=== PATIENT | male | born 1930 | race American Indian/Alaskan Native ===

== ENCOUNTER 2017-05-29 03:04 | Emergency (ER) | payer MEDICARE ==
--- NOTE | 2017-05-29 03:15 | Emergency Department Report ---
ED General Adult HPI - General Chief complaint: Dyspnea/Respdistress Stated complaint: DIFFICULTY IN BREATHING Time Seen by Provider: 05/29/17 03:13 Source: EMS (verbal report received from EMS.ems notes not available at time of chart dictation), RN notes reviewed, old records reviewed Limitations: Altered Mental Status, Physical Limitation, Other (patient is a poor historian) - History of Present Illness Initial comments: Primary care Dr.: Dr. Chadwick Past medical history: Hemorrhagic stroke, Anoxic encephalopathy, seizure, tracheostomy, G-tube This is an 87-year-old male who was previously unknown to this provider. He is sent to the ER from his local detention for evaluation of respiratory distress. As per detention documentation, patient saturating at 70-78% on vent at 4 L/ m. EMS verbally reported that upon arrival they aggressively suctioned the patient , and aggressively provided [id number] ventilation. All these interventions improve the patient's saturation. Upon arrival to the ER, the patient was aggressively suctioned by respiratory therapy, and placed on a ventilator at appropriate settings. 2. A postprocedure arterial blood gas demonstrated a PO2 of over 300, and the patient is currently saturating at 97% on room air in no distress. He is nonverbal, and can therefore not describe exacerbating or relieving factors, or radiation. -: Sudden Improves with: other Worsens with: other Associated Symptoms: other (per hpi) - Related Data Home Medications Medication Instructions Recorded Confirmed Last Taken Famotidine [Pepcid] 40 mg PO DAILY 03/23/17 03/23/17 Unknown Phenytoin (25 mg/ml) [Dilantin] 200 mg FEEDTUBE BID 03/23/17 03/23/17 Unknown Scopolamine [Transderm-Scop] 1 1000units TRANSDERMA Q72HR 03/23/17 03/23/17 Unknown levETIRAcetam [Keppra ORAL LIQ] 1,000 mg FEEDTUBE BID 03/23/17 03/23/17 Unknown Previous Rx's Medication Instructions Recorded Last Taken Type ALBUTEROL NEB's [Proventil 0.083% 2.5 mg IH Q4HRT PRN nebu 03/26/17 Unknown Rx NEBS] Clindamycin [Clindamycin CAP] 300 mg PO Q8H #6 cap 03/26/17 Unknown Rx Famotidine [Pepcid] 20 mg FEEDTUBE BID tablet 03/26/17 Unknown Rx Ferrous Sulfate [Iron] 325 mg PO BID #60 tablet 03/26/17 Unknown Rx Levofloxacin [Levaquin] 750 mg PO QDAY #2 tablet 03/26/17 Unknown Rx Metoprolol [Lopressor TAB] 50 mg FEEDTUBE BID #60 tablet 03/26/17 Unknown Rx QUEtiapine [SEROquel] 50 mg FEEDTUBE TID tablet 03/26/17 Unknown Rx amLODIPine [Norvasc] 10 mg PO QDAY tablet 03/26/17 Unknown Rx Allergies Allergy/AdvReac Type Severity Reaction Status Date / Time No Known Allergies Allergy Unverified 03/22/17 14:09 ED Review of Systems ROS: Stated complaint: DIFFICULTY IN BREATHING Other details as noted in HPI Comment: Unobtainable due to pts medical conditions ED Past Medical Hx - Past Medical History Hx Hypertension: Yes 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 Respiratory failure - Surgical History Hx Pacemaker: No Hx Internal Defibrillator: No Additional Surgical History: Tracheostomy - Social History Smoking Status: Never Smoker - Medications Home Medications: Home Medications Medication Instructions Recorded Confirmed Last Taken Type Famotidine [Pepcid] 40 mg PO DAILY 03/23/17 03/23/17 Unknown History Phenytoin (25 mg/ml) [Dilantin] 200 mg FEEDTUBE BID 03/23/17 03/23/17 Unknown History Scopolamine [Transderm-Scop] 1 1000units TRANSDERMA Q72HR 03/23/17 03/23/17 Unknown History levETIRAcetam [Keppra ORAL LIQ] 1,000 mg FEEDTUBE BID 03/23/17 03/23/17 Unknown History ALBUTEROL NEB's [Proventil 0.083% 2.5 mg IH Q4HRT PRN nebu 03/26/17 Unknown Rx NEBS] Clindamycin [Clindamycin CAP] 300 mg PO Q8H #6 cap 03/26/17 Unknown Rx Famotidine [Pepcid] 20 mg FEEDTUBE BID tablet 03/26/17 Unknown Rx Ferrous Sulfate [Iron] 325 mg PO BID #60 tablet 03/26/17 Unknown Rx Levofloxacin [Levaquin] 750 mg PO QDAY #2 tablet 03/26/17 Unknown Rx Metoprolol [Lopressor TAB] 50 mg FEEDTUBE BID #60 tablet 03/26/17 Unknown Rx QUEtiapine [SEROquel] 50 mg FEEDTUBE TID tablet 03/26/17 Unknown Rx amLODIPine [Norvasc] 10 mg PO QDAY tablet 03/26/17 Unknown Rx ED Physical Exam - General Limitations: Altered Mental Status, Physical Limitation General appearance: in no apparent distress - Head Head exam: Present: atraumatic, normocephalic - Eye Eye exam: Present: normal appearance - ENT ENT exam: Present: mucous membranes dry - Neck Neck exam: Present: normal inspection, other (tracheostomy tube noted, with no redness, pus or streaking) - Respiratory Respiratory exam: Present: rhonchi. Absent: respiratory distress - Cardiovascular Cardiovascular Exam: Present: regular rate, normal rhythm. Absent: systolic murmur, diastolic murmur, rubs, gallop - GI/Abdominal GI/Abdominal exam: Present: soft, normal bowel sounds, other (feeding tube is noted in the stomach. There is no redness, pus or streaking). Absent: distended, tenderness, guarding, rebound, rigid, pulsatile mass - Rectal Rectal exam: Present: deferred, heme (-) stool - Extremities Exam Extremities exam: Present: normal inspection, pedal edema - Back Exam Back exam: Present: normal inspection. Absent: tenderness, CVA tenderness (R), paraspinal tenderness, vertebral tenderness - Neurological Exam Neurological exam: Present: other (chronic encephalopathy) - Psychiatric Psychiatric exam: Present: other (patient is nonverbal) - Skin Skin exam: Present: warm, dry, intact, normal color. Absent: rash ED Course Vital Signs 05/29/17 05/29/17 03:04 03:20 Pulse Rate 84 84 O2 Sat by Pulse 100 Oximetry - Reevaluation(s) Reevaluation #1: 05/29/17 04:21 Heart rate: 59 bpm Blood pressure: 121/60 mm Hg O2 saturation : 100% on mechanical ventilator Respiratory rate mechanical ventilator Patient has a sacral wound which has been dressed by nursing staff. He has no respiratory distress at this time. skilled nursing staff should be more aggressive and careful and thorough suctioning the patient out. ED Medical Decision Making - Lab Data Vital Signs 05/29/17 03:20 Pulse Rate 84 - Radiology Data Radiology results: report reviewed, image reviewed x-ray of the chest demonstrates chronic findings, no acute disease, no obvious infiltrate - Medical Decision Making Differential diagnosis, including but not limited to: Mucous plugging, tracheostomy plugging, aspiration pneumonitis Assessment and plan: 87-year-old male status post probable mucous plugging of his tracheostomy tube. His arterial blood callus appears to be appropriate with the exception of hyperoxia, he is saturating at 97% on room air, and in no distress. His respiratory distress has resolved, his x-ray the chest is clear. Laboratory studies and rectal temperature pending at this time Critical care attestation.: If time is entered above; I have spent that time in minutes in the direct care of this critically ill patient, excluding procedure time. ED Disposition Clinical Impression: Tracheostomy in place Disposition: DC/TX-70 ANOTHER TYPE HLTHCARE Is pt being admited?: No Does the pt Need Aspirin: No Condition: Stable Additional Instructions: Continue current outpatient medications. Make certain to aggressively suction patient. Please make certain the patient is having his daily, weekly and monthly tracheostomy care and management. Please follow-up with the patient's outpatient primary care doctor, turkey picker as scheduled. Please return to the ER right away with new, worsening or different symptoms. Referrals: DAWIT CHADWICK MD [Primary Care Provider] - 3-5 Days
--- NOTE | 2017-05-29 03:38 | XRay Report ---
FINAL REPORT EXAM: XR CHEST 1V AP HISTORY: resp distress COMPARISON: March 2017. FINDINGS: Frontal view(s) of the chest obtained. Heart upper limits normal in size. Tracheostomy tube remains in place. Prominence of the pulmonary vasculature interstitium concerning for mild edema similar prior study. Probable trace effusions. No pneumothorax. IMPRESSION: Findings concerning for mild pulmonary congestion similar prior study.
[2017-05-29 07:22] VITALS: BP 108/45
== END 2017-05-29 08:00 | disposition other institution (70) ==
LOC: ED 03:04
DX: I46.9 Cardiac arrest, cause unspecified (principal); Z93.0 Tracheostomy status; I10 Essential (primary) hypertension
CPT/HCPCS: 71045; 82271; 82803; 94002

== ENCOUNTER 2017-05-29 18:55 | Emergency (ER) | payer MEDICARE ==
[~2017-05-29 18:55] MED LIST: ADRENALIN ONE; CORDARONE IV ONE; SODIUM BICARBONATE IV ONE
--- NOTE | 2017-05-29 20:14 | Emergency Department Report ---
ED CPR HPI - General Chief Complaint: Cardiac Arrest/CPR Stated Complaint: CARDIAC ARREST Time Seen by Provider: 05/29/17 19:11 Source: patient, family Mode of arrival: Stretcher Limitations: No Limitations - History of Present Illness Initial Comments: pt. had a cardiac arrest and was brought in with CPR ongoing and being bagged via the tracheostomy. he as been asystole throughout and the EMS said he as been asystole for 20mins. I worked on him for an extra 12-14 minutes and at one time he was ventricular fibrillation and was shocked once but otherwise was asystole.I spoke to the during the code and she said if the chances of bringing him back is slim or his quality of life will be poor to stop the CPR. MD Complaint: found unresponsive Place: NH/SNF Bystander CPR Performed: No Downtime Before ACLS Arrival (mins): 5 (EMS WORKED ON HIM FOR AN EXTRA 15MINS.) Initial Findings in the Field: unresponsive ROSC in the Field: No Associated Injuries: No - Related Data Home Medications Medication Instructions Recorded Confirmed Last Taken Famotidine [Pepcid] 40 mg PO DAILY 03/23/17 03/23/17 Unknown Phenytoin (25 mg/ml) [Dilantin] 200 mg FEEDTUBE BID 03/23/17 03/23/17 Unknown Scopolamine [Transderm-Scop] 1 1000units TRANSDERMA Q72HR 03/23/17 03/23/17 Unknown levETIRAcetam [Keppra ORAL LIQ] 1,000 mg FEEDTUBE BID 03/23/17 03/23/17 Unknown Previous Rx's Medication Instructions Recorded Last Taken Type ALBUTEROL NEB's [Proventil 0.083% 2.5 mg IH Q4HRT PRN nebu 03/26/17 Unknown Rx NEBS] Clindamycin [Clindamycin CAP] 300 mg PO Q8H #6 cap 03/26/17 Unknown Rx Famotidine [Pepcid] 20 mg FEEDTUBE BID tablet 03/26/17 Unknown Rx Ferrous Sulfate [Iron] 325 mg PO BID #60 tablet 03/26/17 Unknown Rx Levofloxacin [Levaquin] 750 mg PO QDAY #2 tablet 03/26/17 Unknown Rx Metoprolol [Lopressor TAB] 50 mg FEEDTUBE BID #60 tablet 03/26/17 Unknown Rx QUEtiapine [SEROquel] 50 mg FEEDTUBE TID tablet 03/26/17 Unknown Rx amLODIPine [Norvasc] 10 mg PO QDAY tablet 03/26/17 Unknown Rx Allergies Allergy/AdvReac Type Severity Reaction Status Date / Time No Known Allergies Allergy Unverified 03/22/17 14:09 ED Review of Systems ROS: Stated complaint: CARDIAC ARREST Other details as noted in HPI Comment: All other systems reviewed and negative ED Past Medical Hx - Past Medical History Previous Medical History?: Yes Hx Hypertension: Yes 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 Respiratory failure - Surgical History Past Surgical History?: Yes Hx Pacemaker: No Hx Internal Defibrillator: No Additional Surgical History: Tracheostomy - Social History Smoking Status: Never Smoker - Medications Home Medications: Home Medications Medication Instructions Recorded Confirmed Last Taken Type Famotidine [Pepcid] 40 mg PO DAILY 03/23/17 03/23/17 Unknown History Phenytoin (25 mg/ml) [Dilantin] 200 mg FEEDTUBE BID 03/23/17 03/23/17 Unknown History Scopolamine [Transderm-Scop] 1 1000units TRANSDERMA Q72HR 03/23/17 03/23/17 Unknown History levETIRAcetam [Keppra ORAL LIQ] 1,000 mg FEEDTUBE BID 03/23/17 03/23/17 Unknown History ALBUTEROL NEB's [Proventil 0.083% 2.5 mg IH Q4HRT PRN nebu 03/26/17 Unknown Rx NEBS] Clindamycin [Clindamycin CAP] 300 mg PO Q8H #6 cap 03/26/17 Unknown Rx Famotidine [Pepcid] 20 mg FEEDTUBE BID tablet 03/26/17 Unknown Rx Ferrous Sulfate [Iron] 325 mg PO BID #60 tablet 03/26/17 Unknown Rx Levofloxacin [Levaquin] 750 mg PO QDAY #2 tablet 03/26/17 Unknown Rx Metoprolol [Lopressor TAB] 50 mg FEEDTUBE BID #60 tablet 03/26/17 Unknown Rx QUEtiapine [SEROquel] 50 mg FEEDTUBE TID tablet 03/26/17 Unknown Rx amLODIPine [Norvasc] 10 mg PO QDAY tablet 03/26/17 Unknown Rx ED Physical Exam - General Limitations: Other (BEING BAGGED VIA TRACH) General appearance: in distress - Head Head exam: Present: atraumatic - Eye Eye exam: Absent: PERRL - ENT ENT exam: Present: mucous membranes dry - Neck Neck exam: Present: other (TRACH IN PLACE) - Respiratory Respiratory exam: Present: respiratory distress - Cardiovascular Cardiovascular Exam: Absent: regular rate, normal rhythm - GI/Abdominal GI/Abdominal exam: Present: soft - Extremities Exam Extremities exam: Absent: normal inspection, full ROM - Neurological Exam Neurological exam: Absent: alert - Skin Skin exam: Present: warm ED Course - Reevaluation(s) Reevaluation #1: 05/29/17 20:22 I WORKED ON THE PATIENT WHILE HE WAS HERE FOR ANOTHER EXTRA 12-14 MINUTES AND THE CODE WAS CALLED BY ME AT 1907 Critical care attestation.: If time is entered above; I have spent that time in minutes in the direct care of this critically ill patient, excluding procedure time. ED Disposition Clinical Impression: Cardiorespiratory arrest Disposition: DC-20 Is pt being admited?: No Does the pt Need Aspirin: No Condition: Stable Referrals: KARINA RESENDEZ MD [Primary Care Provider] - 3-5 Days
== END 2017-05-30 00:16 ==
LOC: ED 18:55
DX: I46.9 Cardiac arrest, cause unspecified (principal); I10 Essential (primary) hypertension; Z93.0 Tracheostomy status
CPT/HCPCS: 92950; 99285; J0171; J0282